=== PATIENT | male | born 1965 | race Caucasian/White ===

== ENCOUNTER 2017-12-06 06:37 | Observation (INO) ==
[2017-12-06 07:07] LABS: Basophils # 0.1 K/mcL (0.0-0.2); Basophils % 0.7 %; Eosinophils # 0.2 K/mcL (0.0-0.6); Eosinophils % 1.4 %; Hematocrit 45.2 % (37.5-50.1); Hemoglobin 16.1 g/dL (12.9-16.9); Immature Granulocytes % 0.5 % (0-4); Lymphocytes # 2.4 K/mcL (0.6-4.6); Lymphocytes % 20.5 %; Mean Corpuscular HGB Conc 35.6 g/dL (31.6-35.5); Mean Corpuscular Hemoglobin 33.5 pg (28.0-33.3); Mean Platelet Volume 9.2 fL (9.4-12.4); Monocytes # 0.9 K/mcL (0.0-1.3); Neutrophils # 8.1 K/mcL (1.6-8.9); Platelet Count 291 K/mcL (140-400); Red Blood Count 4.81 M/mcL (4.19-5.50); Red Cell Distribution Width 13.8 % (11.5-14.5); Segmented Neutrophils % 68.9 %
[2017-12-06] MEDS ORDERED: Nitroglycerin 1 INCH/GM PACKET TP ONE (07:13)
[2017-12-06] MEDS ORDERED: Aspirin 81 MG TAB.CHEW PO ONE (07:13)
--- NOTE | 2017-12-06 07:16 | Emergency Department Note ---
Disposition Clinical Impression: Alcohol abuse Chest pain Qualifiers: Chest pain type: unspecified Qualified Code(s): R07.9 - Chest pain, unspecified Disposition: Admitted As Inpatient Condition: Fair Time of Disposition: 08:04 Chest Pain HPI - General Chief Complaint: ED Chest Pain Stated Complaint: chest pain Time Seen by Provider: 12/06/17 06:44 Source: patient, EMS Mode of arrival: ambulatory Limitations: no limitations Vital Signs Reviewed: Yes Nursing Notes Reviewed: Yes - History of Present Illness HPI Narrative: 52-year-old male presents for evaluation of chest pain and elevated blood pressure. Patient states symptom onset has been over the past 3 days. States that he has anterior chest pressure with intermittent radiation to the left arm as well as the right arm. Patient notes that it has been intermittent over the past 3 days. Appears to be nonexertional. Appears to resolve spontaneously. Patient does note that it feels like his blood pressure is correlated with this chest pain. Patient denies any changes in medications. Denies any nausea or vomiting but does note diaphoresis. Denies any fevers or cough. No dyspnea. Patient does admit to tobacco as well as alcohol use. Patient states that he drinks a pint of alcohol a day. Denies any history of heart attacks or ACS. Severity scale (1-10): 0 - Related Data Home Medications Medication Instructions Recorded Confirmed Lisinopril [Zestril] 20 mg PO DAILY 12/06/17 12/06/17 Allergies Allergy/AdvReac Type Severity Reaction Status Date / Time No Known Allergies Allergy Verified 12/06/17 07:35 All systems ED: reviewed and negative except as stated. Constitutional: Denies: fever Cardiovascular: Reports: chest pain. Denies: palpitations Respiratory: Denies: cough, dyspnea Gastrointestinal: Denies: abdominal pain, nausea, vomiting Chest Pain PMH - Past Medical History Medical history: Reports: hyperlipidemia, hypertension - Social History Smoking Status: Current every day smoker Alcohol use: Reports: occasionally Drug use: Reports: none Physical Exam - General Limitations: no limitations General appearance: alert, in no apparent distress - Head Head exam: atraumatic, normocephalic, normal inspection - Eye Eye exam: Present: normal appearance, PERRL, EOMI - ENT ENT exam: normal exam, normal oropharynx, mucous membranes moist - Neck Neck exam: Present: normal inspection - Chest Chest inspection: Present: normal inspection. Absent: symmetric chest wall rise - Respiratory Respiratory exam: Present: normal lung sounds bilaterally, prolonged expiratory phase. Absent: respiratory distress - Cardiovascular Cardiovascular exam: Present: regular rate, normal rhythm. Absent: systolic murmur - Abdominal Exam Abdominal exam: Present: soft, Non-Tender - Extremities Exam Extremities exam: Present: normal inspection. Absent: pedal edema - Back Exam Back exam: Present: normal inspection - Neurological Exam Neurological exam: Present: alert, oriented X3 Course Course Narrative: Patient seen and examined. Patient appears to be uncomfortable. Patient will get a basic lab work EKG chest x-ray aspirin and nitroglycerin. - Reevaluation(s) Reevaluation #1: Patient seen and examined. Patient states that the last time he had anything to drink was early this morning. Time: 07:43 Vital Signs Temperature 99.7 F H 12/06/17 06:38 Pulse Rate 102 12/06/17 06:38 Respiratory Rate 18 12/06/17 06:38 Blood Pressure 171/111 12/06/17 06:38 O2 Sat by Pulse Oximetry 94 12/06/17 06:38 Temperature 99.7 F H 12/06/17 06:38 Pulse Rate 96 12/06/17 07:45 Respiratory Rate 20 12/06/17 08:29 Blood Pressure 150/94 12/06/17 08:29 O2 Sat by Pulse Oximetry 93 12/06/17 07:52 Oxygen Delivery Oxygen Delivery Room Air Chest Pain - MDM Narrative Medical decision making narrative: 52-year-old male patient for evaluation of chest pain. Patient's cardiac evaluation the ER shows minimal ST depression in isolated lead. Negative troponin. Patient was given aspirin and nitroglycerin. Patient been pain-free in the emergency department. Patient does have a concerning history of alcoholism. Patient will likely need CWIA protocol during his hospitalization. Patient heart score was a 6. Patient has never worked up for his chest pain. Patient is not appropriate for close outpatient evaluation of his chest pain. Patient will be admitted to the hospital service. - Lab Data Lab results reviewed: Yes I reviewed the patient's lab results. Result diagrams: 12/06/17 06:53 12/06/17 06:53 Lab Results 12/06/17 12/06/17 12/06/17 Range/Units 06:53 06:53 06:53 WBC 11.8 H (4.3-11.1) K/mcL RBC 4.81 (4.19-5.50) M/mcL Hgb 16.1 (12.9-16.9) g/dL Hct 45.2 (37.5-50.1) % MCV 94.0 (83.0-100.0) fL MCH 33.5 H (28.0-33.3) pg MCHC 35.6 H (31.6-35.5) g/dL RDW 13.8 (11.5-14.5) % Plt Count 291 (140-400) K/mcL MPV 9.2 L (9.4-12.4) fL Immature Gran % 0.5 (0-4) % Seg Neutrophils % 68.9 % Lymphocytes % 20.5 % Monocytes % 8.0 % Eosinophils % 1.4 % Basophils % 0.7 % Neutrophils # 8.1 (1.6-8.9) K/mcL Lymphocytes # 2.4 (0.6-4.6) K/mcL Monocytes # 0.9 (0.0-1.3) K/mcL Eosinophils # 0.2 (0.0-0.6) K/mcL Basophils # 0.1 (0.0-0.2) K/mcL Sodium 138 (136-145) mEq/L Potassium 3.4 L (3.5-5.1) mEq/L Chloride 104 (98-107) mEq/L Carbon Dioxide 22 L (23-29) mEq/L BUN 12 (6-20) mg/dL Creatinine 0.77 (0.70-1.30) mg/dL Est GFR ( Amer) > 60 (> 60) Est GFR (Non-Af Amer) > 60 (> 60) BUN/Creatinine Ratio 16 (6-26) Glucose 151 H (70-105) mg/dL Calculated Osmolality 289 (280-300) Calcium 9.4 (8.6-10.3) mg/dL Troponin I < 0.03 (< 0.04) ng/mL - Radiology Data Radiology results reviewed: Yes I reviewed the patient's radiology results. Chest X-Ray 12/06/17 06:44 IMPRESSION: No acute abnormality. D/ / Camilo Saxena MD / Camilo Saxena MD Interpreting Provider: Camilo Saxena MD - EKG Data EKG attestation: Yes I reviewed and interpreted this EKG. EKG shows normal: sinus rhythm Rate: normal Rhythm: NSR [place]/QRS: normal ST segment elevation in: II Interpretation: no acute changes, nonspecific ST-T wave changes Heart Score - Score History: Moderately Suspicious EKG: Significant ST-Depression Age: 45-65 Risk Factors: Equal/Greater than 3 risk factor or history of atherosclerotic disease Troponin: Less than normal limit HEART Score Total: 6 S.B.A.R. - S.B.A.ROchoa Situation: Demographics Background: Presenting Complaint Assessment: Vital Signs, Patient/Family Expectation Recommendation: Barrier(s) to disposition, Recommendation based on pending studies, treatments, or consults S.B.A.ROchoa Report Given to: Dr. Bijal Menon Repor Time: 08:04 Attestation Statement - Attestation Attestation: I examined this patient and my medical decision-making was reviewed with the Resident Physician. I agree with the documented findings, disposition and treatment plan as described except to the extent set forth below. Patient to ED with chest pressure. Currently resolved on my evaluation. Describes it as pressure going in the left upper arm. No cardiac history but he is a smoker, hypertension, extensive family history coronary disease. In no distress on exam. EKG has some ST depressions. Troponin is negative. HEart score 6. Patient will be admitted for further cardiac workup.
[2017-12-06 07:22] LABS: Calcium 9.4 mg/dL (8.6-10.3); Carbon Dioxide 22 mEq/L (23-29); Chloride 104 mEq/L (98-107); Potassium 3.4 mEq/L (3.5-5.1); Sodium 138 mEq/L (136-145)
[2017-12-06 07:27] LABS: BUN/Creatinine Ratio 16 (6-26); Blood Urea Nitrogen 12 mg/dL (6-20); Glucose 151 mg/dL (70-105); Osmolality,Calculated 289 (280-300); eGFR For African Americans > 60 (> 60); eGFR For Non-African Americans > 60 (> 60)
[2017-12-06] MEDS ORDERED: Folic Acid 1 MG TABLET PO ONE (07:43)
[2017-12-06] MEDS ORDERED: Naloxone 0.4 MG/ML INJ IVP PRN (10:43)
[2017-12-06] MEDS ORDERED: 0.9 % Sodium Chloride 1,000 ML IVC SCH (10:45)
--- NOTE | 2017-12-06 10:51 | Internal Med History&Physical ---
Date of Encounter: 12/06/17 Time of Encounter: 10:48 Assessment and Plan (1) Tobacco abuse Current visit: Yes Status: Acute I provided smoking cessation counseling. He does have intense craving and therefore we will start nicotine transdermal. (2) Essential hypertension Current visit: Yes Status: Acute Continue lisinopril. (3) Hypokalemia Current visit: Yes Status: Acute IV fluids with potassium. (4) Alcohol abuse Current visit: Yes Status: Acute I advised alcohol cessation. We will start CIWA protocol (5) Chest pain Current visit: Yes Status: Acute At this time he reports recurrent chest pain, mild in intensity in spite of the initial treatment with nitroglycerin patch. We will place the patient in observation. Trend troponin. Repeat EKG. Provide gambling monitor. If he rules out we will plan for stress test and echocardiogram in the morning. He has recurrent chest pain and therefore we will start treatment with IV nitroglycerin infusion. Qualifiers: Chest pain type: precordial pain Qualified Code(s): R07.2 - Precordial pain Internal Medicine - H&P: HPI Chief complaint: Chest pain Admitted From: Emergency Dept Plans for Post Hospital Care: Home History of present illness: Mr. Olsen is a 52 year old male with past medical history significant for hypertension and tobacco abuse who presented to the hospital for evaluation of chest pain. He reports intermittent precordial chest pain for the last 3 days. This morning it became more persistent. At its worst it got to 8/10 in intensity, described as pressure, not associated with shortness of breath or diaphoresis. He states that drinking whiskey makes the pain get better. Upon initial evaluation in the emergency department he was found to be hypertensive, workup revealed negative troponin and EKG. Review of systems he admits to depression and chronic cough, otherwise a 10 point review of systems was negative. Past medical history: Essential hypertension, hyperlipidemia Past surgical history: Remote appendectomy Family history: Patient's father suffered with acute AL is in his 60s. Social history: Admits to drinking more than a pint of whiskey a day. He smokes one pack of cigarettes a day, sometimes more. Denies recreational drug use. Past Med Surg Social Fam HX - Past Medical History Medical history: hyperlipidemia, hypertension - Social History Smoking Status: Current every day smoker Smokeless Tobacco Status: No Alcohol use: occasionally Drug use: none - Family History Father Hx Family Cardiac Disorders: Yes Internal Medicine - H&P: Meds Lisinopril [Zestril] 20 mg PO DAILY 12/06/17 [History] 3 Allergy/AdvReac Type Severity Reaction Status Date / Time No Known Allergies Allergy Verified 12/06/17 07:35 All Systems PM: A 10-system review of systems was performed and is negative for pertinent findings except as documented above in the HPI. - Constitutional Vitals: Temp Pulse Resp BP Pulse Ox 99.7 F H 96 20 150/94 93 12/06/17 06:38 12/06/17 07:45 12/06/17 08:29 12/06/17 08:29 12/06/17 07:52 General appearance: Present: A&O X 3, no acute distress, answers questions appropriately - Eye Eye exam: Present: PERRL, conjuntiva pink, sclera anicteric Pupils: Present: PERRL - Cardiovascular Cardiovascular exam: Present: RRR, +S1, +S2. Absent: diastolic murmur, gallop, rubs, systolic murmur - GI/Abdominal GI/Abdominal exam: Present: normal bowel sounds, soft, no peritoneal signs. Absent: distended, tenderness - Extremities Exam Extremities exam: Present: warm, radial pulses palpable and symmetrical. Absent : calf tenderness, cyanotic, pedal edema - Neurological Exam Neurological exam: Present: CN II-XII intact, oriented X3, no focal deficits. Absent: pronater drift, facial droop, speech deficit - Skin Skin exam: Present: dry, intact Internal Med - H&P Results - Labs CBC & Chem 7: 12/06/17 06:53 12/06/17 06:53 - EKG Data -: EKG Interpreted by Myself EKG shows normal: sinus rhythm (Rate 61 bpm), intervals, QRS complexes, ST-T waves
[2017-12-06] MEDS ORDERED: 0.45 % Sodium Chloride w/KCl 20 MEQ/1,000 ML MLS IVC SCH (11:00)
[2017-12-06] MEDS ORDERED: Nitroglycerin 25 MG/250 ML INFUS..BTL IVC SCH (11:15)
[2017-12-06] MEDS: Thiamine (B-1) 100 MG TABLET PO SCH (11:48)
[2017-12-06] MEDS: Nicotine 21 MG PATCH.TD24 TD SCH (11:54)
[2017-12-06] MEDS: Thiamine (B-1) 100 MG, Folic Acid 1 MG, MVI, adult with vitamin K 10 ML in 0.9 % Sodi... IVPB SCH (18:14)
[2017-12-06] MEDS: Acetaminophen 325 MG TABLET PO PRN ×2 (18:48→23:48)
[2017-12-07] MEDS ORDERED: Ibuprofen 400 MG TABLET PO ONE (03:06)
[2017-12-07 05:26] LABS: Basophils # 0.1 K/mcL (0.0-0.2); Basophils % 0.5 %; Eosinophils # 0.2 K/mcL (0.0-0.6); Eosinophils % 1.7 %; Immature Granulocytes % 0.3 % (0-4); Lymphocytes # 2.2 K/mcL (0.6-4.6); Lymphocytes % 16.6 %; Mean Corpuscular HGB Conc 34.4 g/dL (31.6-35.5); Mean Corpuscular Hemoglobin 32.8 pg (28.0-33.3); Mean Corpuscular Volume 95.3 fL (83.0-100.0); Mean Platelet Volume 9.2 fL (9.4-12.4); Monocytes % 7.9 %; Neutrophils # 9.5 K/mcL (1.6-8.9); Platelet Count 240 K/mcL (140-400); Red Cell Distribution Width 13.5 % (11.5-14.5)
[2017-12-07 05:59] LABS: Hemoglobin 14.1 g/dL (12.9-16.9)
[2017-12-07] MEDS ORDERED: Regadenoson 0.4 MG/5 ML SYRINGE IVP ONE (06:41)
[2017-12-07 06:58] LABS: BUN/Creatinine Ratio 15 (6-26); Blood Urea Nitrogen 10 mg/dL (6-20); Calcium 8.6 mg/dL (8.6-10.3); Carbon Dioxide 24 mEq/L (23-29); Chloride 105 mEq/L (98-107); Chol/HDL Ratio 6.2 (0-4.9); Cholesterol 223 mg/dL (< 200); Glucose 117 mg/dL (70-105); HDL Cholesterol 36 mg/dL (40-59); LDL Cholesterol,Calculated 118 mg/dL (0-99); Magnesium 1.4 mg/dL (1.6-2.6); Osmolality,Calculated 282 (280-300); Potassium 3.5 mEq/L (3.5-5.1); Sodium 136 mEq/L (136-145); Triglycerides 345 mg/dL (< 150); eGFR For African Americans > 60 (> 60); eGFR For Non-African Americans > 60 (> 60)
[2017-12-07] MEDS: Aspirin Enteric Coated 81 MG Tablet PO SCH (08:26)
[2017-12-07] MEDS: Folic Acid 1 MG TABLET PO SCH (08:27)
[2017-12-07] MEDS: Vitamin B Complex/Vit C/Vit E 1 EACH TABLET PO SCH (08:34)
[2017-12-07] MEDS: Thiamine (B-1) 100 MG TABLET PO SCH ×2 (08:34)
[2017-12-07] MEDS: Lisinopril 20 MG TABLET PO SCH ×2 (08:34→13:28)
[2017-12-07] MEDS: Nicotine 21 MG PATCH.TD24 TD SCH (08:34)
--- NOTE | 2017-12-07 12:13 | Event Note ---
Date of Encounter: 12/07/17 Time of Encounter: 12:08 Patient seen and examined at bedside post stress test. He was on nitro drip before the procedure due to ongoing chest pain. He also continues to have HTN ( SBP> 180 on back to back readings ), and is adamant about leaving for home. I explained that we do not have his stress results back yet and I am uncomfortable discharging him based on his severity of symptoms , need for Nitro drip on admission, concern for GI source of pain , his signifiant ETOH abuse history and Smoking . I suggested cardiology eval in addition to further exploring reason for his abdominal pain. He was explained all risks of leaving against medical advice and he verbalized understanding of them via readback. He is willing to sign out AMA and have a follow up with his PCP ( for stress test results ) I have conveyed this to the RN caring for him at this time. patient has capacity to make medical decisions at this time.
--- NOTE | 2017-12-07 13:08 | Internal Med Progress Note ---
Date of Encounter: 12/07/17 Time of Encounter: 11:00 - Assessment and plan (1) Chest pain Current Visit: Yes Status: Acute Assessment and plan: Patient had been on a nitroglycerin drip for his chest pain which was taken off just before he had the stress test. At this point the patient denies chest pain but I am not really sure because he wanted to send out against medical advice earlier. He is not a very good historian and wants to resort to smoking and or alcohol as soon as he was to leave the hospital based on his answers. Regardless he did have mild troponin leak and it is trending down-going to consult cardiology for further input he is also hypertensive and I would resume his home medications and put him on beer and hydralazine stress test report other possible etiology for his chest pain could be gastritis versus peptic ulcer disease vs Gerd-initiated a PPI and check amylase/lipase Qualifiers: Chest pain type: precordial pain Qualified Code(s): R07.2 - Precordial pain (2) Essential hypertension Current Visit: Yes Status: Acute Assessment and plan: Continues to be hypertensive. He did not take his morning medications because of the stress test. I will resume his home doSE 1st and then add PRN hydralazine (3) Alcohol abuse Current Visit: Yes Status: Acute Assessment and plan: Heavy drinker continue to watch on the CIWA protocol (4) Hypokalemia Current Visit: Yes Status: Resolved Assessment and plan: Has resolved. Check BMP in the morning (5) Tobacco abuse Current Visit: Yes Status: Acute Assessment and plan: Tobacco cessation again stressed - Time Spent With Patient Greater than 35 minutes - Subjective Interval history: Patient was seen right after stress test. Please refer to my earlier note regarding him wanting to leave against medical advice. I just got notified from the nurse that now he has changed his mind and wants to stay. He continues to be hypertensive and he was convinced by his that he will not be leaving - Constitutional Vitals: Temp Pulse Resp BP Pulse Ox 97.6 F 87 16 194/97 95 12/07/17 11:34 12/07/17 11:34 12/07/17 11:34 12/07/17 11:47 12/07/17 11:34 General appearance: Present: A&O X 3, no acute distress, answers questions appropriately Exam: General , Alert , oriented, moderate distress and anxious, flushed face HEENT- PERRLA. EOMI CVS- S1S2 N, No Murmurs, Rubs, gallops, No JVD RS- CTA Bilaterally. No rales no Rhonchi heard Abdomen- Soft NT ND, bowel sounds heard across all 4 quadrants Neuro- No Focal deficits appreciated, CN 2-12 intact, Motors- power 5/5 UE, 5/5 LE Bilaterally, Sensations intact Extremeties- 1+ pitting edema seen in bilateral lower extremities Internal Medicine: Result - Labs CBC & Chem 7: 12/07/17 05:11 12/07/17 06:37 Labs: Short CBC 12/07/17 Range/Units 05:11 WBC 13.0 H (4.3-11.1) K/mcL Hgb 14.1 D (12.9-16.9) g/dL Hct 41.0 (37.5-50.1) % Plt Count 240 (140-400) K/mcL Neutrophils # 9.5 H (1.6-8.9) K/mcL BMP 12/07/17 06:37 Sodium 136 Potassium 3.5 Chloride 105 Carbon Dioxide 24 BUN 10 Creatinine 0.68 L Glucose 117 H Calcium 8.6 Cardiac Enzymes 12/06/17 12/06/17 Range/Units 12:55 16:52 Troponin I < 0.03 < 0.03 (< 0.04) ng/mL - Impressions Impressions Echocardiogram 12/06/17 11:15 Impressions: LVEF 55%. Mild left ventricular diastolic dysfunction. Normal right ventricular structure and function. No significant valvular dysfunction. Lack of TR gradient to estimate RVSP. Left Ventricular Wall Motion: Rest Echo Findings All wall segments showed normal motion. Findings: Study Quality * Technically adequate exam. ECG Findings * Normal sinus rhythm. Left Ventricle * LVEF 55%. * Normal LV size and wall thickness. * Mild left ventricular diastolic dysfunction. Right Ventricle * Normal right ventricular structure and function. Left Atrium * Normal left atrial size. Right Atrium * Normal right atrial size. Aortic Valve * No aortic regurgitation. * Aortic valve not well visualized. * No aortic stenosis. Mitral Valve * No mitral regurgitation. * No mitral stenosis. * Mitral valve not well visualized. Tricuspid Valve * Tricuspid valve not well visualized. * No tricuspid regurgitation. * Estimated RA pressure is 8 mmHg. Pulmonic Valve * Pulmonic valve is not well visualized. * No pulmonic stenosis. * No pulmonic regurgitation. Pulmonary Artery * Pulmonary artery not well visualized. Aorta * Normally sized aortic root. * Ascending aorta not well visualized. Pericardium * There is no pericardial effusion present. Interatrial Septum * No evidence of PFO by color Doppler. IVC * The IVC is dilated. * > 50% respiratory change Consult Discharge Plan - Plan Referrals: Brisa Earl, BRYANNA [Primary Care Provider] -
[2017-12-07] MEDS: *HR* LORazepam 2 MG/ML VIAL IVP PRN (13:28)
[2017-12-07 13:36] LABS: Amylase 22 Units/L (29-103)
[2017-12-07 13:41] LABS: Lipase 16 Units/L (11-82)
[2017-12-07] MEDS ORDERED: *HR* Metoprolol 5 MG/5 ML VIAL IVP ONE (19:05)
[2017-12-07] MEDS: Thiamine (B-1) 100 MG, Folic Acid 1 MG, MVI, adult with vitamin K 10 ML in 0.9 % Sodi... IVPB SCH (21:33)
[2017-12-08] MEDS: Nicotine 21 MG PATCH.TD24 TD SCH (09:25)
[2017-12-08] MEDS: Aspirin Enteric Coated 81 MG Tablet PO SCH (09:25)
[2017-12-08] MEDS: Vitamin B Complex/Vit C/Vit E 1 EACH TABLET PO SCH (09:26)
[2017-12-08] MEDS: Folic Acid 1 MG TABLET PO SCH (09:26)
[2017-12-08] MEDS: Thiamine (B-1) 100 MG TABLET PO SCH ×2 (09:26→09:27)
--- NOTE | 2017-12-08 09:50 | Discharge Summary ---
<Daria Graham - Last Filed: 12/08/17 11:39> Date of Encounter: 12/08/17 Time of Encounter: 09:47 - Discharge Diagnosis (1) Chest pain Priority: Primary Status: Acute Comments: He denies any chest pain at this time. Nitro drip has been discontinued since . Stress test report on 12/07/17 reads perfusion imaging was negative for ischemia or infarct.Pharmacologic stress ECG is negative for ischemia at level of heart rate achieved. No appreciable change from baseline EKG. Qualifiers: Chest pain type: precordial pain Qualified Code(s): R07.2 - Precordial pain (2) Essential hypertension Priority: Secondary Status: Acute Comments: Patient's blood pressure was 169/97 on exam. Patient received his antihypertensive on exam. Will recheck blood pressure before discharge. 1. Recommend the patient take the 20mg Lisinopril as prescribed. 2. Will prescribe 5mg Amlodipine daily. 3. Will prescribe Lipitor 40mg daily due to patient's elevated cholesterol and triglycerides. (3) Alcohol abuse Priority: Secondary Status: Acute (4) Tobacco abuse Priority: Secondary Status: Acute (5) Hypokalemia Priority: Secondary Status: Resolved Comments: Resolved. Potassium s 3.5 today. - Discharge Medications Prescriptions: amLODIPine [Norvasc] 5 mg PO DAILY #30 tablet Atorvastatin [Lipitor] 40 mg PO HS #30 tablet Folic Acid 1 mg PO DAILY #30 tablet Sertraline [Zoloft] 25 mg PO DAILY #30 tablet Thiamine (B-1) [Vitamin B-1] 100 mg PO DAILY #30 tablet Home Medications: Lisinopril [Zestril] 20 mg PO DAILY 12/06/17 [History] Atorvastatin [Lipitor] 40 mg PO HS #30 tablet 12/08/17 [Rx] Folic Acid 1 mg PO DAILY #30 tablet 12/08/17 [Rx] Sertraline [Zoloft] 25 mg PO DAILY #30 tablet 12/08/17 [Rx] Thiamine (B-1) [Vitamin B-1] 100 mg PO DAILY #30 tablet 12/08/17 [Rx] amLODIPine [Norvasc] 5 mg PO DAILY #30 tablet 12/08/17 [Rx] Allergies/Adverse Reactions: 3 Allergy/AdvReac Type Severity Reaction Status Date / Time No Known Allergies Allergy Verified 12/06/17 07:35 Procedures/tests Complete & Pending: Procedures Performed prior 72 hours Category Date Time Status NM juarez perf SPECT multi [NM] Routine Exams 12/07/17 08:30 Taken EKG [ECG 12 lead ECG] [ECG] Stat Y 12/06/17 10:50 Completed EV echocardiogram Stat Y 12/06/17 11:15 Completed SP pharm nuclear stress Routine Y 12/07/17 07:30 Completed Date of admission: 12/06/17 08:20 Primary care physician: Brisa Earl CNP Consults: 12/06/17 11:16 Consult to [employer]ling [employer] Eng[employer]ver [CONS] Routine Reason for SW Consult: Alcohol abuse 12/07/17 13:16 Consult to Cardiology [CONS] Routine Comment: Consulting Provider: Vikas Lopez Reason for Consult: chest pain /mild trop leak, stress pending/ early CAD Fam Hx Time Notified: 13:17 Call Completed: Yes Discharging clinician: Daria Graham Anticipated date of discharge: 12/08/17 - Patient Status Disposition: Home, Self-Care Condition: Good Functional capacity at discharge: independent ambulation Overall status at discharge: patient is progressing back to baseline - Discharge Instructions Follow Up With: Brisa Earl CNP [Primary Care Provider] - [facility] Lopez [Provider Group] Additional Instructions: 1. Please follow up with your primary care physician within one week. 2. Please continue all of your home medications as prescribed. Take the whole dose of 20mg Lisinopril by mouth daily. 3. Please take the Amlodipine 5mg daily and Lipitor 40mg daily as prescribed. 4. Please follow up with a mine safety director within 1-2 weeks to further evaluate your chest pain. 5. Smoking cessation and decreasing alcohol intake is recommended. 6. Please return to the hospital for new or worsening symptoms including chest discomfort that is worse with medicine, coughing or vomiting blood, black or bloody bowel movements, and any other concerns. Can start Fish oil 1 capsule twice a day to decrease triglyceride level, decrease carbohydrates Start sertraline for anxiety, follow-up with psychiatry recommended - Diet and Activity Activity: increase activity as tolerated Diet: advance to your usual diet, low salt diet Interval History: The patient was seen and evaluated at bedside this morning. The patient is alert, awake, and interactive. The patient is afebrile and appears in no acute distress. The patient states that he feels a lot better today. He denies any chest pain and states that he is ready to return home as soon as possible. The patient states that his blood pressure readings at home reads 140 through 160's systolic. He admits he has a blood pressure at home and will continue to log his readings. He states that he much preferred to be discharged and follow with his primary care physician as soon as he can. The patient denies any headache, fever, vision changes, chest pain, shortness of breath, difficulty breathing, abdominal pain, nausea and vomiting, diarrhea, numbness and tingling , and any weaknesses. Patient has no other concerns at this time. Hospital course: Mr. Olsen is a 52 year old male with the past medical history of hypertension , hyperlipidemia, tobacco abuse, and alcoholism who was admitted on 12/06/2017 for chest pain. The patient reported to the emergency department complaining of intermittent chest pain with radiation to his left arm for the past 3 days. The patient describes the chest pain as a pressure that is not associated with shortness of breath with diaphoresis. He admits he treats approximately 1 pint of whiskey a day. He states that drinks whiskey to improve his chest pain. Upon initial evaluation in the emergency department, he was found to be hypertensive. Chest x-ray show no acute abnormalities. Initial troponin was negative. EKG show no ST elevations. Upon admission, patient continues to have recurrent chest pain and was therefore started on IV nitroglycerin infusion. The infusion was discontinued prior to the stress test of 12/07/17. Nuclear stress report reads perfusion imaging was negative for ischemia or infarct.Pharmacologic stress ECG is negative for ischemia at level of heart rate achieved. No appreciable change from baseline EKG. patient continues to be hypertensive on admission. However, the patient states that his blood pressure readings at home have been 140 through 160's systolic. The patient states that his home medication of lisinopril is 20 mg daily. However, the patient states that his primary care physician recommended that he only take half of that dose daily due to episodes of lightheadedness and dizziness when he takes the whole dose. The patient attributes those symptoms to his blood pressure dropping to quickly. Due to his uncontrolled hypertension on admission , the patient was recommended to take the whole dose of 20mg Lisinopril when he is discharged. The patient was recommended to follow up with his primary care physician within one week and discuss with his PCP about his antihypertensive dosing. The patient was also recommended to follow up with a mine safety director to be further evaluated for his chest pain. The patient is currently chest pain free. He is not in any acute distress and is ready to be discharged. Blood pressure readings will be repeated prior to discharge. The patient has no other concerns at this time. Time spent discussing smoking cessation with patient: 3 to 10 minutes - Time Spent with Patient Total time spent providing and/or coordinating discharge services: 40 minutes - Constitutional Vitals: Temp Pulse Resp BP Pulse Ox 98.2 F 85 16 169/97 98 12/08/17 07:33 12/08/17 07:33 12/08/17 07:33 12/08/17 07:33 12/08/17 07:33 General appearance: Present: A&O X 3, no acute distress, answers questions appropriately Exam: The patient's skin is flush on exam. - Head Head exam: Present: atraumatic - Eye Eye exam: Present: EOMI, normal appearance, PERRL - ENT ENT exam: Present: mucous membranes moist - Neck Neck exam general surgery: Present: normal inspection, supple. Absent: lymphadenopathy, tenderness - Respiratory Respiratory exam: Present: CTAB. Absent: accessory muscle use, chest wall tenderness, respiratory distress, rhonchi, stridor, wheezes - Cardiovascular Cardiovascular exam: Present: RRR, +S1, +S2. Absent: gallop, rubs, systolic murmur, tachycardia - GI/Abdominal GI/Abdominal exam: Present: soft. Absent: distended, firm, guarding, rebound, rigid, tenderness - Extremities Exam Extremities exam: Present: normal inspection, warm, radial pulses palpable and symmetrical. Absent: calf tenderness, joint swelling, pedal edema, tenderness - Neurological Exam Neurological exam: Present: alert, CN II-XII intact, oriented X3, no focal deficits. Absent: altered, pronater drift, facial droop, speech deficit - Skin Skin exam: Present: dry, intact, warm Additional comments: The patient's skin appeared flushed on my exam. <Vinayak Castrejon - Last Filed: 12/08/17 11:57> Date of Encounter: 12/08/17 Procedures/tests Complete & Pending: Procedures Performed prior 72 hours Category Date Time Status NM juarez perf SPECT multi [NM] Routine Exams 12/07/17 08:30 Taken EKG [ECG 12 lead ECG] [ECG] Stat Y 12/06/17 10:50 Completed EV echocardiogram Stat Y 12/06/17 11:15 Completed SP pharm nuclear stress Routine Y 12/07/17 07:30 Completed Date of admission: 12/06/17 08:20 Primary care physician: Brisa Earl CNP Consults: 12/06/17 11:16 Consult to [employer] [CONS] Routine Reason for SW Consult: Alcohol abuse 12/07/17 13:16 Consult to Cardiology [CONS] Routine Comment: Consulting Provider: Cardiology Jessica Reason for Consult: chest pain /mild trop leak, stress pending/ early CAD Fam Hx Time Notified: 13:17 Call Completed: Yes Hospital course: Mr. Olsen is a 52 year old male - Time Spent with Patient Total time spent providing and/or coordinating discharge services: - Constitutional Vitals: Temp Pulse Resp BP Pulse Ox 98.2 F 85 16 169/97 98 12/08/17 07:33 12/08/17 07:33 12/08/17 07:33 12/08/17 07:33 12/08/17 07:33
[2017-12-08] MEDS: *HR* LORazepam 2 MG/ML VIAL IVP PRN (11:45)
[2017-12-08] MEDS ORDERED: *HR* LORazepam 1 MG TABLET PO ONE (11:48)
[2017-12-08 11:54] VITALS: BP 178/112
--- NOTE | 2017-12-08 11:54 | Cardiology Consult Note ---
Date of Encounter: 12/08/17 Time of Encounter: 11:52 Assessment and Plan Discussion w patient/family: [employer] would not allow me to enter assessments in typical location. Chest pain. Tobacco use. HTN. HLD. Alcohol abuse. We had a lengthy discussion about risk factors for CAD and risk factor modification encouraged. Discussed findings of his stress test and TTE. Explained that stress tests are not perfect, but his did not show any evidence of ischemia. Offered diagnostic LHC, but patient declined. He prefers to monitor for now, medical therapy. He understands risks. He is adamant about going home. Recommend aspirin for primary prevention. Recommend BB therapy. Ideally, should be on a statin, but alcohol abuse noted. Tobacco cessation emphasized. Your management regarding HTN. Patient states he will return to hospital if symptoms return. Outpatient followup encouraged. All questions answered. The assessment and plan as outlined above was discussed with the patient and/or family members who expressed understanding and agreement. All questions were answered. Thank you for involving us in the care of your patient. Please call with any questions. History of Present Illness Consult date: 12/08/17 Requesting physician: Argelia Hopkins Consult reason: Chest pain Chief complaint: Chest pain History of present illness: Mr. Olsen is a 52 year old male admitted for chest pain. Reports AM after waking up. Lasted about an hour, no radiation. No associated with activity. Denies chest pain since admission. Troponin measurements negative here. RFs include tobacco use, htn, hld, possible family history. Stress test performed, negative for ischemia. TTE - LVEF normal. Past Med Surg Social Fam HX - Past Medical History Medical history: hyperlipidemia, hypertension - Social History Smoking Status: Current every day smoker Packs per day: 1 Smokeless Tobacco Status: No Alcohol use: occasionally Drug use: none - Family History Father Hx Family Cardiac Disorders: Yes Medications and Allergies Lisinopril [Zestril] 20 mg PO DAILY 12/06/17 [History] Atorvastatin [Lipitor] 40 mg PO HS #30 tablet 12/08/17 [Rx] amLODIPine [Norvasc] 5 mg PO DAILY #30 tablet 12/08/17 [Rx] 3 Allergy/AdvReac Type Severity Reaction Status Date / Time No Known Allergies Allergy Verified 12/06/17 07:35 All Systems Review: A 10-system review of systems was performed and is negative for pertinent findings except as documented above in the HPI. - Cardiovascular Cardiovascular: as per HPI, chest pain at rest Physical Examination General: Conversant, No Apparent Distress HEENT: Atraumatic, Normocephaly, Mucus Membranes Moist Neck: No JVD, Normal carotid pulses Cardiac: Reg Rate and Rhythm, Normal S1 and S2, No Murmur Lungs: Normal Breath Sounds, No Wheeze, Rales, Rhonchi Neuro: Alert and responsive, No focal deficits noted Abdomen: Soft, Non-Tender Skin: No rashes noted on visualized skin Musculoskeletal: No Chest Wall Tenderness Extremities: No Clubbing, No Cyanosis, No Edema Results 12/07/17 05:11 12/07/17 06:37 Lab Results 12/07/17 13:15 Amylase 22 L Lipase 16 - Imaging and Cardiology Stress Test: report reviewed Echo: report reviewed - EKG Interpretation EKG results cardiology: personally reviewed Consult Discharge Plan - Plan Additional Instructions: 1. Please follow up with your primary care physician within one week. 2. Please continue all of your home medications as prescribed. Take the whole dose of 20mg Lisinopril by mouth daily. 3. Please take the Amlodipine 5mg daily and Lipitor 40mg daily as prescribed. 4. Please follow up with a assembly member within 1-2 weeks to further evaluate your chest pain. 5. Smoking cessation and decreasing alcohol intake is recommended. 6. Please return to the hospital for new or worsening symptoms including chest discomfort that is worse with medicine, coughing or vomiting blood, black or bloody bowel movements, and any other concerns. Referrals: Cardiology Jessica [Provider Group] Brisa Earl CNP [Primary Care Provider] - Prescriptions: amLODIPine [Norvasc] 5 mg PO DAILY #30 tablet Atorvastatin [Lipitor] 40 mg PO HS #30 tablet
[2017-12-08] MEDS ORDERED: amLODIPine 5 MG TABLET PO SCH (12:00)
[2017-12-08] MEDS ORDERED: FLUARIX QUAD 2017-18 36MOS UP/PF 0.5 ML SYRINGE IM ONE (12:04)
--- NOTE | 2017-12-09 11:19 | Electrocardiograph Report ---
[address] [address] Test Date: 2017-12-06 Pat Name: Eagle Olsen Department: 103 Room: [facility] Gender: M Motel Manager: THANH : 1965 Requested By: Yonny Appiah Order Number: [id number] Reading MD: Reny Vega Measurements Intervals [place] Rate: 87 P: 65 [place]: 128 QRS: 71 QRSD: 105 T: 51 QT: 348 QTc: 392 Interpretive Statements SINUS RHYTHM Electronically Signed On 12-09-2017 11:17:45 EST by Reny Vega
--- NOTE | 2017-12-09 11:40 | Electrocardiograph Report ---
[address] [address] Test Date: 2017-12-06 Pat Name: Eagle Olsen Department: 102 Room: [facility] Gender: M Sprinkling System Installer: Yoly : 1965 Requested By: Dylan Hinds Order Number: [id number] Reading MD: Reny Vega Measurements Intervals [place] Rate: 99 P: 74 [place]: 159 QRS: 80 QRSD: 92 T: 57 QT: 324 QTc: 381 Interpretive Statements SINUS RHYTHM Electronically Signed On 12-09-2017 11:39:06 EST by Reny Vega
== END 2017-12-08 13:00 | disposition home or self-care (01) ==
LOC: EMEROO 06:37 → 2SOUTHHOLD 06:37 → 2NENU 12-07 19:16
PROVIDERS: ADMIT Internal Medicine; ATTEND Registered Nurse